=== PATIENT | female | born 1980 | race Caucasian/White ===

== ENCOUNTER 2017-09-27 07:16 | Emergency (ER) | payer BC ==
[2017-09-27] MEDS: ACETAMINOPHEN 500 MG TAB PO (07:35)
== END 2017-09-27 08:02 | disposition home or self-care (01) ==
LOC: FTE 07:16
DX: O99.512 Diseases of the respiratory system complicating pregnancy, second trimester (principal); J32.9 Chronic sinusitis, unspecified; Z3A.17 17 weeks gestation of pregnancy
CPT/HCPCS: 99283